=== PATIENT | male | born 1960 | race American Indian/Alaskan Native ===

== ENCOUNTER 2017-06-01 13:58 | Emergency (ER) | payer MEDICAID ==
[2017-06-01 14:48] VITALS: BP 147/87
--- NOTE | 2017-06-01 16:21 | XRay Report ---
CHEST 2 VIEWS INDICATION: Cough. COMPARISON: None similar at this institution. FINDINGS: PA and lateral chest radiographs demonstrate normal cardiomediastinal silhouette. Clear lungs. Intact bones. CONCLUSION: No acute disease in the chest. Thank you for the opportunity to participate in this patient's care.
--- NOTE | 2017-06-01 17:13 | Emergency Department Report ---
Entered by MORRO GAGONN, acting as scribe for PRABHJOT SUMMERS PA. HPI - General Chief Complaint: Upper Respiratory Infection Time Seen by Provider: 06/01/17 14:50 - HPI HPI: This is a 57 y/o male with a PMHx of HTN and HIV presents to the ED c/o an upper respiratory infection that began 1 week ago. Patient states it feels like something is choking him and he has drainage in the back of his throat at night. Associated cough with yellow sputum, but he denies weight loss, night sweats, sore throat, ear pain, congestion, rhinorrhea, fever, chills, chest pain , SOB, YI or dizziness, numbness, tingling. Patient states his roommate in the [facility] facility are experiencing similar symptoms as well. Reports his last T-cell count was in the 800s and his CD4 count was undetectable. Notes he goes to [facility] and takes Truvada regularly. Patient states he takes Bactrim 800 mg QD. Reports that he was clean from cocaine for 10 years and relapsed 3 weeks ago. Consumes EtOH (6-pack) daily. NKDA. ED Past Medical Hx - Past Medical History Previous Medical History?: Yes Hx Hypertension: Yes Hx HIV: Yes - Surgical History Past Surgical History?: No - Family History Family history: no significant - Social History Smoking Status: Current Every Day Smoker Substance Use Type: Alcohol Other Social History: Patient is at [facility] for cocaine abuse ED Review of Systems ROS: Stated complaint: COUGH Other details as noted in HPI Comment: All other systems reviewed and negative Constitutional: denies: chills, diaphoresis, fever, malaise, weakness Eyes: denies: eye pain, eye discharge, vision change ENT: denies: ear pain, throat pain, dental pain, hearing loss, epistaxis, congestion Respiratory: cough (with yellow sputum). denies: orthopnea, shortness of breath , SOB with exertion, SOB at rest, stridor, wheezing Cardiovascular: denies: chest pain, palpitations, dyspnea on exertion, orthopnea , edema, syncope, paroxysmal nocturnal dyspnea Endocrine: no symptoms reported Gastrointestinal: denies: abdominal pain, nausea, vomiting, diarrhea Genitourinary: denies: urgency, dysuria Musculoskeletal: denies: back pain, joint swelling, arthralgia Skin: denies: rash, lesions Neurological: denies: headache, weakness, numbness, paresthesias Psychiatric: denies: anxiety, depression Hematological/Lymphatic: denies: easy bleeding, easy bruising Physical Exam - Physical Exam Vital Signs: Vital Signs 06/01/17 14:47 Temperature 98.2 F Pulse Rate 75 Respiratory 16 Rate Blood Pressure 147/87 O2 Sat by Pulse 100 Oximetry General: General: This is a well nourished, well developed, 57 year old male in no acute distress and nontoxic in appearance Physical Exam: Head: Normocephalic, atraumatic Mouth: Moist, no pharyngeal exudate or erythema. Uvula is midline and oral airway is patent. No facial swelling. No peritonsillar abscesses. Nose: Normal external appearance. Maxillary and frontal sinuses nontender to palpation. Nose is congested with clear drainage. Neck: Supple, no C-spine tenderness, no tracheal deviation. Nontender to palpation. no adenopathy Ears: Bilateral TMs are congested without any redness, swelling, or drainage. Bilateral EAC without any redness, swelling, or drainage. Abdomen: Soft, nontender to palpation in all quadrants, normal bowel sounds in all quadrants and negative CVA tenderness bilaterally. Eyes: Bilateral pupils equal and reactive to light, bilateral EOM intact. Bilateral sclera and conjunctiva without injection. Normal accommodation. Chest/Lungs: Clear to auscultation bilaterally. No wheezes, rhonchi, or rales noted. No accessory muscle use. No increased work of breathing. No chest wall tenderness Extremities: No CCE. +2 pulses. No neurovascular compromise Cardiovascular: S1-S2, regular rate, regular rhythm. No murmurs. Skin: Clean, dry, and intact with no rash and no lesions Psych: Normal mood and behavior ED Course Vital Signs 06/01/17 14:47 Temperature 98.2 F Pulse Rate 75 Respiratory 16 Rate Blood Pressure 147/87 O2 Sat by Pulse 100 Oximetry - Reevaluation(s) Reevaluation #1: 06/01/17 17:06 Patient stable throughout ED stay and after my physical assessment I was told by a nurse that patient eloped ED Medical Decision Making - Radiology Data Radiology results: report reviewed Chest x-ray reveals no acute findings - Medical Decision Making ED course: Patient came to the emergency room from [facility] reporting that he has a cough for 1 week and that it's disturbing his roommates so he came here to get checked out. Patient is HIV positive and he goes to [facility] clinic and says that his viral load is undetectable and his T-cell count was in the 800s. She denies any shortness of breath or chest pain. Physical findings for upper respiratory tract infection with cough. Patient's chest x-ray revealed no acute cardiopulmonary findings. Patient takes Truvada once daily. Vital signs are stable. Patient voiced understanding of treatment plan. Diagnostic/labs:cxr shows no acute cardiopulmonary findings Assessment/plan 1. Personal history of HIV on medication 2. Acute upper respiratory tract infection 3. Acute cough Patient discharge eloped from room before his x-ray results came back and I attempted to call phone number and chart but there are no answer. I could not give patient his discharge paperwork because he eloped. Please refer to signed AMA on chart. Critical care attestation.: If time is entered above; I have spent that time in minutes in the direct care of this critically ill patient, excluding procedure time. ED Disposition Clinical Impression: Acute upper respiratory infection, Cough, History of HIV infection Disposition: DC-07 LEFT AGAINST MED ADVICE Is pt being admited?: No Does the pt Need Aspirin: No Condition: Stable Forms: AMA Form This documentation as recorded by the KALIN page JASMINE,accurately reflects the service I personally performed and the decisions made by me,PRABHJOT SUMMERS PA.
== END 2017-06-01 16:35 | disposition left against medical advice (07) ==
LOC: ED 13:58
DX: J06.9 Acute upper respiratory infection, unspecified (principal); I10 Essential (primary) hypertension; F17.200 Nicotine dependence, unspecified, uncomplicated
CPT/HCPCS: 71020; 99283